=== PATIENT | female | born 1960 | race American Indian/Alaskan Native ===

== ENCOUNTER 2017-02-27 03:44 | Emergency (ER) | payer SELFPAY ==
[2017-02-27] MEDS ORDERED: NACL 0.9% 1000 ML 1,000 ML IV ONE (03:49)
[2017-02-27 05:08] LABS: Hematocrit 42.4 % (30.3-42.9); Hemoglobin 13.5 gm/dl (10.1-14.3); Mean Corpuscular HGB Conc 32 % (30-34); Mean Corpuscular Volume 75 fl (79-97); Platelet Count 228 K/mm3 (140-440); Red Blood Count 5.69 M/mm3 (3.65-5.03); Red Cell Distribution Width 14.7 % (13.2-15.2); White Blood Count 5.6 K/mm3 (4.5-11.0)
[2017-02-27 05:11] LABS: Alanine Aminotransferase 32 units/L (7-56); Albumin/Globulin Ratio 1.3 %; Alkaline Phosphatase 98 units/L (35-129); Anion Gap 24 mmol/L; Bilirubin,Total 1.2 mg/dL (0.1-1.2); Blood Urea Nitrogen 14 mg/dL (7-17); Calcium 8.4 mg/dL (8.4-10.2); Carbon Dioxide 23 mmol/L (22-30); Chloride 98.9 mmol/L (98-107); Glucose 156 mg/dL (65-100); Lipase 23 units/L (13-60); Potassium 3.9 mmol/L (3.6-5.0); Sodium 142 mmol/L (137-145); Total Protein 7.2 g/dL (6.3-8.2)
[2017-02-27 05:18] LABS: INR 1.19 (0.87-1.13); Mean Corpuscular Hemoglobin 24 pg (28-32)
[2017-02-27 06:32] LABS: Basophils % (Manual) 0 % (0.0-1.8); Blastocytes % (Manual) 0 %
[2017-02-27 06:33] LABS: Anisocytosis Few; Diff Status Complete; Elliptocytes Rare; Giant Platelets Rare; Hypochromasia 1+
[2017-02-27 06:53] VITALS: BP 140/67
[2017-02-27] MEDS ORDERED: MORPHINE IV ONE (07:09)
[2017-02-27] MEDS ORDERED: ALUM-MAG HYDROX-SIMETH 200-200-20MG/5ML PO ONE (07:09)
[2017-02-27] MEDS ORDERED: PEPCID IV ONE (07:09)
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
== END 2017-02-27 08:22 | disposition home or self-care (01) ==
LOC: ED 03:44
DX: K29.21 Alcoholic gastritis with bleeding (principal); I10 Essential (primary) hypertension; E11.9 Type 2 diabetes mellitus without complications; F17.200 Nicotine dependence, unspecified, uncomplicated; F12.10 Cannabis abuse, uncomplicated
CPT/HCPCS: 36415; 80053; 83690; 85007; 85025; 85610; 85730; 86850; 86900; 86901; 93005; 93010; 96361; 96374; 96375; 99284; J2270; J7030